=== PATIENT | male | born 1975 | race Caucasian/White ===

== ENCOUNTER 2018-01-23 09:28 | Emergency (ER) | payer OTHER, BC ==
[2018-01-23 09:43] VITALS: BP 156/89
[2018-01-23] MEDS ORDERED: Sodium Chloride 0.9% 10 ML Syringe FLUSH PRN (09:52)
[2018-01-23] MEDS ORDERED: Ondansetron 4 MG/2 ML SDV IVPUSH ONE (09:52)
[2018-01-23] MEDS ORDERED: Sodium Chloride 0.9% 1,000 ML IV ONE (09:52)
[2018-01-23] MEDS ORDERED: fentaNYL 100 MCG/2 ML SDV IVPUSH ONE (09:52)
--- NOTE | 2018-01-23 09:58 | EDM.PDOC ---
ED HPI GENERAL MEDICAL PROBLEM - General Chief Complaint: Chest Pain Stated Complaint: RIB PAIN DUE TO FALL Time Seen by Provider: 01/23/18 09:36 Source of Information: Reports: Patient History Limitations: Reports: No Limitations - History of Present Illness INITIAL COMMENTS - FREE TEXT/NARRATIVE: The patient is a 42-year-old male who presents with right-sided chest and lower back pain after a fall. He was working on some sort of a tire trailer and fell from a height of around 4 feet and hit his right back area on a bumper on his way down. He was able to partially break his fall with his right arm which she says is scraped but otherwise feels uninjured. He states that he has the most severe pain in his right lower chest and back area. It is painful with breathing. No shortness of breath. He doesn't really have any abdominal pain. No midline back pain. No neck pain. He didn't hit his head. No headache. No vomiting. Hasn't taken anything for pain yet today. Pain is currently severe. Sharp. Worse with movement. Better with rest. Right Chest Pain Score (Numeric/FACES): 10 - Related Data Allergies Allergy/AdvReac Type Severity Reaction Status Date / Time No Known Allergies Allergy Verified 01/23/18 09:35 Home Meds: Home Meds Cyclobenzaprine [Flexeril] 10 mg PO TID PRN #24 tab 01/23/18 [Rx] Ibuprofen 800 mg PO TID PRN #50 tablet 01/23/18 [Rx] Prednisone [IJD: predniSONE] See Taper PO DAILY 01/23/18 [History] oxyCODONE 5 mg PO DAY PRN #20 tab 01/23/18 [Rx] Past Medical History - Past Health History Medical/Surgical History: Denies Medical/Surgical History Respiratory History: Reports: Asthma Neurological History: Reports: Other (See Below) Other Neuro History: siatica, reports schediled for surgery on friday Social & Family History - Tobacco Use Smoking Status *Q: Never Smoker - Caffeine Use Caffeine Use: Reports: None ED ROS GENERAL - Review of Systems Review Of Systems: See Below Constitutional: Denies: Fever HEENT: Reports: No Symptoms Respiratory: Denies: Shortness of Breath, Cough Cardiovascular: Reports: Chest Pain Endocrine: Reports: No Symptoms GI/Abdominal: Denies: Abdominal Pain : Reports: Flank Pain Musculoskeletal: Denies: Neck Pain Skin: Reports: Wound Neurological: Reports: No Symptoms. Denies: Headache Psychiatric: Reports: No Symptoms Hematologic/Lymphatic: Reports: No Symptoms Immunologic: Reports: No Symptoms ED EXAM, GENERAL - Physical Exam Exam: See Below Exam Limited By: No Limitations General Appearance: Alert, WD/WN, No Apparent Distress Eye Exam: Bilateral Eye: Normal Inspection Ears: Normal External Exam Nose: Normal Inspection Throat/Mouth: Normal Inspection, Normal Oropharynx, Normal Voice, No Airway Compromise Head: Atraumatic, Normocephalic Neck: Normal Inspection, Supple, Non-Tender, Full Range of Motion Respiratory/Chest: No Respiratory Distress, Lungs Clear, Normal Breath Sounds, No Accessory Muscle Use, Other (Right lateral lower chest wall tenderness and right posterior lower chest wall tenderness, no crepitus, no deformity, no bruising. Patient does have a posterior chest wall abrasion that extends towards the right flank with mild soft tissue swelling, no laceration or open wound) Cardiovascular: Normal Peripheral Pulses, Regular Rate, Rhythm, No Edema GI/Abdominal: Soft, Non-Tender, No Distention. No: Rebound Back Exam: Normal Inspection, CVA Tenderness (R). No: CVA Tenderness (L), Decreased Range of Motion, Paraspinal Tenderness, Vertebral Tenderness Extremities: Normal Range of Motion, Non-Tender, No Pedal Edema, Other (Linear abrasion extending from right elbow to wrist along the medial aspect of the forearm, no bony tenderness or deformity, no additional extremity abnormality) Neurological: Alert, Oriented, Normal Cognition, No Motor/Sensory Deficits Psychiatric: Normal Affect, Normal Mood Skin Exam: Warm, Dry, Intact, Normal Color, No Rash Course - Vital Signs Last Recorded V/S: Last Vital Signs Temp 36.9 C 01/23/18 09:37 Pulse 69 01/23/18 09:37 Resp 18 01/23/18 09:37 BP 156/89 H 01/23/18 09:37 Pulse Ox 100 01/23/18 09:37 - Orders/Labs/Meds Orders: Active Orders 24 hr Category Date Time Status Peripheral IV Care [RC] . DIRECTED Care 01/23/18 09:52 Active Peripheral IV Care [RC] . DIRECTED Care 01/23/18 09:52 Active Peripheral IV Insertion Adult [OM.PC] Routine Oth 01/23/18 09:52 Ordered Labs: Laboratory Tests 01/23/18 01/23/18 Range/Units 10:00 10:00 WBC 11.47 H (4.23-9.07) K/mm3 RBC 5.36 (4.63-6.08) M/mm3 Hgb 15.6 (13.7-17.5) gm/L Hct 45.2 (40.1-51.0) % MCV 84.3 (79.0-92.2) fl MCH 29.1 (25.7-32.2) pg MCHC 34.5 (32.2-35.5) g/dl RDW Std Deviation 41.6 (35.1-43.9) fL Plt Count 290 (163-337) K/mm3 MPV 9.8 (9.4-12.3) fl Neut % (Auto) 80.0 H (34.0-67.9) % Lymph % (Auto) 13.5 L (21.8-53.1) % [place] % (Auto) 4.7 L (5.3-12.2) % Eos % (Auto) 0.9 (0.8-7.0) Baso % (Auto) 0.2 (0.1-1.2) % Neut # (Auto) 9.18 H (1.78-5.38) K/mm3 Lymph # (Auto) 1.55 (1.32-3.57) K/mm3 [place] # (Auto) 0.54 (0.30-0.82) K/mm3 Eos # (Auto) 0.10 (0.04-0.54) K/mm3 Baso # (Auto) 0.02 (0.01-0.08) K/mm3 Sodium 139 (136-145) mEq/L Potassium 5.0 (3.5-5.1) mEq/L Chloride 103 (98-107) mEq/L Carbon Dioxide 24 (21-32) mEq/L Anion Gap 17.0 H (5-15) BUN 27 H (7-18) mg/dL Creatinine 1.0 (0.7-1.3) mg/dL Est Cr Clr Drug Dosing 103.47 mL/min Estimated GFR (MDRD) > 60 (>60) mL/min BUN/Creatinine Ratio 27.0 H (14-18) Glucose 115 H (74-106) mg/dL Calcium 9.3 (8.5-10.1) mg/dL Total Bilirubin 0.8 (0.2-1.0) mg/dL AST 13 L (15-37) U/L ALT 33 (16-63) U/L Alkaline Phosphatase 82 (46-116) U/L Total Protein 8.0 (6.4-8.2) g/dl Albumin 4.2 (3.4-5.0) g/dl Globulin 3.8 gm/dL Albumin/Globulin Ratio 1.1 (1-2) Lipase 90 (73-393) U/L Meds: Medications Discontinued Medications Generic Name Dose Route Start Last Admin Trade Name Freq PRN Reason Stop Dose Admin Cyclobenzaprine HCl 10 mg 01/23/18 11:08 01/23/18 11:15 Flexeril PO 01/23/18 11:09 10 mg ONETIME ONE Administration Fentanyl 100 mcg 01/23/18 09:52 01/23/18 10:02 Sublimaze IVPUSH 01/23/18 09:53 100 mcg ONETIME ONE Administration Sodium Chloride 1,000 mls @ 1,000 mls/hr 01/23/18 09:52 01/23/18 10:02 Normal Saline IV 01/23/18 10:51 1,000 mls/hr ONETIME ONE Administration Ibuprofen 800 mg 01/23/18 11:08 01/23/18 11:15 Motrin PO 01/23/18 11:09 800 mg ONETIME ONE Administration Iopamidol 125 ml 01/23/18 10:02 01/23/18 10:36 Isovue-300 (61%) IVPUSH 01/23/18 10:03 125 ml ONETIME ONE Administration Morphine Sulfate 4 mg 01/23/18 10:44 01/23/18 10:48 Morphine IVPUSH 4 mg Q2H PRN Administration Pain Ondansetron HCl 4 mg 01/23/18 09:52 01/23/18 10:01 Zofran IVPUSH 01/23/18 09:53 4 mg ONETIME ONE Administration Oxycodone/Acetaminophen 1 tab 01/23/18 11:08 01/23/18 11:14 Percocet 325-5 Mg PO 01/23/18 11:09 1 tab ONETIME ONE Administration Sodium Chloride 10 ml 01/23/18 09:52 01/23/18 10:02 Saline Flush FLUSH 10 ml ASDIRECTED PRN Administration Keep Vein Open Sodium Chloride 10 ml 01/23/18 10:02 01/23/18 10:36 Saline Flush FLUSH 01/23/18 10:03 10 ml ONETIME ONE Administration - Re-Assessments/Exams Free Text/Narrative Re-Assessment/Exam: 01/23/18 11:09 CT scan of the chest abdomen pelvis shows a 1.3 cm noncalcified nodule within the lingula, recommended biopsy or PET scan for further evaluation. I discussed this with the patient and encouraged him to follow-up either with primary care physician here or in his hometown for further evaluation of this. Provided sonic phone number to schedule. Skin also shows a slightly displaced right 11th rib fracture. This does correlate with patient's area of greatest pain. He also has fractures within the right transverse processes of L1-L3. No additional abnormality on CT chest abdomen pelvis. Labs including CBC and chemistry were unremarkable. We'll provide patient with small pain medication prescription and encouraged him to follow up with primary care physician for further care. Departure - Departure Time of Disposition: 11:00 Disposition: Home, Self-Care 01 Clinical Impression: Lumbar transverse process fracture Qualifiers: Encounter type: initial encounter Fracture type: closed Qualified Code(s): S32.009A - Unspecified fracture of unspecified lumbar vertebra, initial encounter for closed fracture Rib fracture Qualifiers: Encounter type: initial encounter Rib fracture type: single rib Fracture type: closed Laterality: right Qualified Code(s): S22.31XA - Fracture of one rib, right side, initial encounter for closed fracture - Discharge Information Prescriptions: Cyclobenzaprine [Flexeril] 10 mg PO TID PRN #24 tab PRN Reason: Muscle Spasm Ibuprofen 800 mg PO TID PRN #50 tablet PRN Reason: Pain oxyCODONE 5 mg PO 5XDAY PRN #20 tab PRN Reason: Pain Instructions: Transverse Process Fracture, Rib Fracture, [id number] Referrals: PCP,Not In Area [Primary Care Provider] - Forms: ED Department Discharge Additional Instructions: 1. Follow up with the primary care provider of your choice for further care. Call [phone] if you'd like to schedule with a provider here. 2. Take ibuprofen for pain. Take cyclobenzaprine as needed for muscle relaxation. Take oxycodone for severe pain. Take the least possible dose of oxycodone. No driving or working while taking this medication as it can make you sleepy or confused. This medication can be addictive if taken long-term and can also increase your body's sensitivity to pain, so should only be used as a short-term option. 3. Your CT scan shows a 1.3 cm mass in your lingular lung lobe. Our radiologist recommends you have this further evaluated with either a biopsy or PET scan. Follow up with a primary care provider as soon as possible, ideally within 1-2 weeks, to arrange this testing. 4. Your CT scan also shows the following injuries: R 11th rib fracture, R transverse process fractures of lumbar spinous processes 1, 2, and 3. These fracture will heal without treatment. Follow up with your primary care provider if you need additional help with pain control and/or referrals for physical therapy. - My Orders Last 24 Hours: My Active Orders 01/23/18 09:52 Peripheral IV Care [RC] . DIRECTED Peripheral IV Care [RC] . DIRECTED Peripheral IV Insertion Adult [OM.PC] Routine - Assessment/Plan Last 24 Hours: My Active Orders 01/23/18 09:52 Peripheral IV Care [RC] . DIRECTED Peripheral IV Care [RC] . DIRECTED Peripheral IV Insertion Adult [OM.PC] Routine
[2018-01-23] MEDS ORDERED: Sodium Chloride 0.9% 10 ML Syringe FLUSH ONE (10:02)
[2018-01-23] MEDS ORDERED: Iopamidol 612 MG/ML 150 ML Bottle IVPUSH ONE (10:02)
[2018-01-23] MEDS ORDERED: Morphine 4 MG/ML Syringe IVPUSH PRN (10:44)
--- NOTE | 2018-01-23 11:02 | CT ---
CT chest Technique: Multiple axial sections were obtained from above the lung apices inferiorly through the lung bases. Intravenous contrast was utilized. Comparison: No previous study is available. Findings: Partial fatty eventration is seen of the posterior right hemidiaphragm which is old and normal variant. No pericardial thickening is seen. Aorta and pulmonary arteries appear within normal limits. No mediastinal adenopathy is seen. No axillary adenopathy is seen. Nodule is identified within the lingula measuring 1.3 cm. No calcifications are seen within this nodule. Lungs otherwise are clear with no pulmonary contusion being seen. No pleural effusions or pneumothorax are seen. Bone window settings were reviewed which shows a fracture within the posterolateral right 11th rib. No additional rib fractures are seen. Minimal degenerative spurring is noted within the spine. No compression deformities are seen within the thoracic spine. Reconstructed sagittal images shows no sternal abnormality. Impression: 1. 1.3 cm noncalcified nodule within the lingula. Since no prior studies are available to determine stability, either biopsy or PET scan recommended to further evaluate. 2. 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 3. Slightly displaced rib fracture within the right 11th rib. Diagnostic code #9 CT abdomen and pelvis Technique: Multiple axial sections were obtained from above the dome of the diaphragm inferiorly through the pubic symphysis. Intravenous contrast was utilized. No oral contrast has been given. Comparison: No previous study. Findings: Liver shows no focal parenchymal abnormality. Spleen appears within normal limits. Adrenal glands show no nodule. Pancreas is within normal limits. Gallbladder contains no calcified gallstones. Kidneys show symmetric contrast enhancement without hydronephrosis or mass. Appendix is seen which is normal in size. Aorta shows no aneurysmal dilatation. No retroperitoneal adenopathy or mesenteric abnormalities are seen. No pelvic mass or adenopathy is seen. Diverticuli are seen within the sigmoid colon without inflammatory change of diverticulitis. Delayed images shows contrast within the distal ureters and within the bladder. Bone window settings were reviewed which shows a fracture within the right L1, L2 and L3 transverse processes. Previous lower lumbar spine surgery is seen. No additional lumbar spine abnormality is seen. Impression: 1. Fractures within the right transverse process of L1-L3. Prior lumbar spine surgery. 2. No additional abnormality is seen on CT study of the abdomen and pelvis. Diagnostic code #3
[2018-01-23] MEDS ORDERED: Acetaminophen/oxyCODONE 325-5 MG Tab PO ONE (11:08)
[2018-01-23] MEDS ORDERED: Ibuprofen 800 MG Tab PO ONE (11:08)
[2018-01-23] MEDS ORDERED: Cyclobenzaprine 10 MG Tab PO ONE (11:08)
== END 2018-01-23 11:47 | disposition home or self-care (01) ==
LOC: JD.ED 09:28
DX: S22.31XA Fracture of one rib, right side, initial encounter for closed fracture (principal); S32.019A Unspecified fracture of first lumbar vertebra, initial encounter for closed fracture; S32.029A Unspecified fracture of second lumbar vertebra, initial encounter for closed fracture; S32.039A Unspecified fracture of third lumbar vertebra, initial encounter for closed fracture; W17.89XA Other fall from one level to another, initial encounter
CPT/HCPCS: 36415; 71260; 74177; 80053; 83690; 85025; 96361; 96374; 96375; 99284; A9270; J2270; J2405; J3010; J7040; J7050; Q9967